=== PATIENT | female | born 1945 | race African-American/Black ===

== ENCOUNTER → 2016-12-05 | Outpatient (CLI) | payer OTHER | END | disposition home or self-care (01) | LOC: RADPV 15:20 | PROVIDERS: ATTEND Legal Medicine | DX: M17.12 Unilateral primary osteoarthritis, left knee (principal) ==

== ENCOUNTER 2022-09-03 05:26 | Inpatient (IN) | payer MEDICARE ==
[~2022-09-03] VITALS: Ht 157.5 cm; Wt 76.5 kg
[~2022-09-03 05:26] MED LIST: ATOR10TA PO; CHOL400T56 PO; FURO20 PO; HYDR10TA31 PO; LOSA-382 PO; METF-1211 PO; VERA120T91 PO
[2022-09-03] MEDS ORDERED: RINGERS SOLUTION,LACTATED 1,000 ML IV ONE ×3 (05:30→09:36)
[2022-09-03] MEDS ORDERED: DORZ10DR6 OU (06:44)
[2022-09-03] MEDS ORDERED: LOSA-382 PO (06:44)
[2022-09-03] MEDS ORDERED: SODIUM CHLORIDE 0.9% 50 ML ONE (06:44)
[2022-09-03] MEDS ORDERED: BRIM15DR8 OU (06:44)
[2022-09-03] MEDS ORDERED: FURO40 PO (06:44)
[2022-09-03] MEDS ORDERED: CELE200 PO (06:44)
[2022-09-03] MEDS ORDERED: HYDR50TA36 PO (06:44)
[2022-09-03] MEDS ORDERED: XALA2.5OS OU (06:44)
[2022-09-03] MEDS ORDERED: VANCOMYCIN HCL 1 GM/VIAL ONE (06:45)
[2022-09-03] MEDS ORDERED: BUPIVACAINE HCL/PF 0.5% 30 ML VIAL ONE (06:45)
[2022-09-03] MEDS ORDERED: ETHYL ALCOHOL 62% ANTISEPTIC NASAL SANITIZER 0.6 ML AMPUL NASAL ONE (06:45)
[2022-09-03] MEDS ORDERED: CHOL25TA4 PO (06:46)
[2022-09-03] MEDS ORDERED: ATOR40TA28 PO (06:46)
[2022-09-03 06:54] LABS: COVID AG,FIA SOURCE NASAL SWAB
[2022-09-03 06:56] LABS: GLUCOMETER DEV NAME(LOC) SDS.; GLUCOSE,POINT OF CARE 99 MG/DL (70-110)
[2022-09-03] MEDS ORDERED: BUPIVACAINE LIPOSOME/PF 1.3%-13.3MG/ML SUSPENSION 20 ML VIAL INJ ONE (07:00)
[2022-09-03] MEDS ORDERED: TRANEXAMIC ACID 1,000 MG in DEXTROSE 5%-WATER 50 ML IV ONE (07:00)
[2022-09-03] MEDS ORDERED: HYDROmorphone HCL 2 MG/ML SYRINGE IVP PRN ×2 (08:30→13:15)
[2022-09-03] MEDS ORDERED: FentaNYL CITRATE PF 100 MCG/2 ML VIAL IVP PRN (08:30)
[2022-09-03] MEDS ORDERED: DiphenhydrAMINE HCL 50 MG/ML VIAL IVP PRN (09:30)
[2022-09-03] MEDS ORDERED: MAG HYDROX/AL HYDROX/SIMETH 30 ML SUSP UDCUP PO PRN (09:30)
[2022-09-03] MEDS ORDERED: ONDANSETRON HCL 4 MG/2 ML VIAL IVP PRN ×2 (09:30→15:45)
[2022-09-03] MEDS ORDERED: BISACODYL 10 MG RECTAL RECTAL SUPPOSITORY PR PRN ×2 (09:30→15:45)
[2022-09-03] MEDS ORDERED: HYDROmorphone HCL 2 MG/ML SYRINGE ONE (10:54)
[2022-09-03] MEDS ORDERED: SODIUM CHLORIDE 0.9% 500 ML IV ONE (11:56)
[2022-09-03] MEDS ORDERED: GLYCOPYRROLATE 0.2 MG/ML VIAL IM ONE (12:00)
[2022-09-03] MEDS ORDERED: MIDAZOLAM HCL 2 MG/2 ML VIAL IVP ONE (12:00)
[2022-09-03] MEDS ORDERED: FentaNYL CITRATE PF 100 MCG/2 ML VIAL IVP ONE (12:00)
[2022-09-03] MEDS ORDERED: 0.9% SODIUM CHLORIDE 10 ML VIAL IVP ONE (12:00)
[2022-09-03] MEDS ORDERED: DiphenhydrAMINE HCL 50 MG/ML VIAL IVP ONE (12:00)
[2022-09-03] MEDS ORDERED: PROPOFOL 1% 20 ML VIAL IVP ONE (12:00)
[2022-09-03] MEDS ORDERED: EPHEDrine SULFATE 50 MG/ML VIAL IM ONE (12:00)
[2022-09-03] MEDS ORDERED: ONDANSETRON HCL 4 MG/2 ML VIAL IVP ONE (12:00)
[2022-09-03 12:47] VITALS: BP 134/65
[2022-09-03] MEDS: CELECOXIB 100 MG CAPSULE PO SCH ×2 (13:15→20:22)
[2022-09-03] MEDS: CeFAZolin 2 GM/DEXTROSE 50 ML IV SCH ×2 (14:39→22:46)
[2022-09-03] MEDS ORDERED: ZOLPIDEM TARTRATE 5 MG TABLET PO PRN (15:45)
[2022-09-03] MEDS ORDERED: ACETAMINOPHEN 325 MG TABLET PO PRN (15:45)
[2022-09-03] MEDS ORDERED: ALBUTEROL SULFATE 2.5 MG/0.5 ML NEB SOLUTION NEB PRN (15:45)
[2022-09-03] MEDS ORDERED: MAGNESIUM HYDROXIDE SUSPENSION 30 ML UDCUP PO PRN (15:45)
[2022-09-03] MEDS ORDERED: DEXTROSE 50%-WATER 25 GM/50 ML SYRINGE IVP PRN (15:45)
[2022-09-03] MEDS ORDERED: IPRATROPIUM BROMIDE 0.5 MG/2.5 ML NEB SOLUTION NEB PRN (15:45)
[2022-09-03] MEDS: DORZOLAMIDE HCL 2% 10 ML OPHTHALMIC SOLUTION OU SCH ×2 (16:33→20:24)
[2022-09-03] MEDS: CYCLOBENZAPRINE HCL 10 MG TABLET PO SCH ×2 (16:33→20:24)
[2022-09-03] MEDS: BRIMONIDINE TARTRATE 0.2% 5 ML OPHTHALMIC SOLUTION OU SCH ×2 (16:33→20:24)
[2022-09-03] MEDS: HEPARIN SODIUM,PORCINE 5,000 UNITS/ML VIAL SQ SCH ×2 (16:34→23:33)
[2022-09-03] MEDS: HYDROmorphone HCL 2 MG/ML SYRINGE IVP PRN ×2 (18:02→22:43)
[2022-09-03 19:29] VITALS: BP 148/69
[2022-09-03 20:10] VITALS: BP 124/56
[2022-09-03] MEDS: FAMOTIDINE 20 MG TABLET PO SCH (20:23)
[2022-09-03] MEDS: ATORVASTATIN CALCIUM 40 MG TABLET PO SCH (20:23)
[2022-09-03] MEDS: CHOLECALCIFEROL (VIT D3) 1,000 UNITS [25 MCG] TABLET PO SCH (20:23)
[2022-09-03] MEDS: HydrALAZINE HCL 50 MG TABLET PO SCH (20:23)
[2022-09-03] MEDS: VERAPAMIL HCL 120 MG ER TABLET PO SCH (20:23)
[2022-09-03] MEDS: DOCUSATE SODIUM 100 MG CAPSULE PO SCH (20:23)
[2022-09-03] MEDS: LATANOPROST 0.005% 2.5 ML OPHTHALMIC SOLUTION OU SCH (20:24)
[2022-09-03] MEDS ORDERED: DOCUSATE SODIUM 100 MG CAPSULE PO SCH (21:00)
[2022-09-03] MEDS: INSULIN LISPRO 100 UNITS/ML SQ PRN (22:44)
[2022-09-04 04:08] VITALS: BP 115/60
[2022-09-04] MEDS: HYDROmorphone HCL 2 MG/ML SYRINGE IVP PRN (05:29)
[2022-09-04] MEDS: OxyCODONE HCL/ACETAMINOPHEN 5-325 MG TABLET PO PRN ×2 (06:30→17:08)
[2022-09-04 07:46] LABS: GLUCOMETER DEV NAME(LOC) 6N.1; GLUCOSE,POINT OF CARE 102 MG/DL (70-110)
[2022-09-04 07:47] LABS: GLUCOMETER DEV NAME(LOC) 6N.1; GLUCOSE,POINT OF CARE 94 MG/DL (70-110)
[2022-09-04 07:47] LABS: GLUCOMETER DEV NAME(LOC) 6N.1; GLUCOSE,POINT OF CARE 146 MG/DL (70-110)
[2022-09-04 07:48] LABS: BASOPHILS % (AUTO) 0.2 % (0.0-2.0); EOSINOPHILS % (AUTO) 0.1 % (1.0-6.0); HEMATOCRIT 35.2 % (36-46); HEMOGLOBIN 11.3 g/dL (12.0-16.0); LYMPHOCYTES # (AUTO) 0.8 K/uL (1.0-4.8); LYMPHOCYTES % (AUTO) 10.4 % (22.0-44.0); MEAN CORPUSCULAR HEMOGLOBIN 26.5 pg (26.0-34.0); MEAN CORPUSCULAR HGB CONC 32.1 G/dL (31.0-37.0); MEAN CORPUSCULAR VOLUME 83 fL (80-100); MONOCYTES # (AUTO) 0.7 K/uL (0.1-1.0); MONOCYTES % (AUTO) 9.4 % (2.0-9.0); NEUTROPHILS # (AUTO) 6.1 K/uL (1.8-7.7); NEUTROPHILS % (AUTO) 79.9 % (40.0-70.0); PLATELET COUNT (AUTO) 242 K/uL (150-450); RED BLOOD CELL COUNT(AUTO) 4.26 MIL/uL (4.00-5.20); RED CELL DISTRIBUTION WIDTH 14.9 % (11.5-14.5)
[2022-09-04 07:59] VITALS: BP 125/52
[2022-09-04 08:02] LABS: ANION GAP 10 mmol/L (8-16); CALCIUM, TOTAL 8.7 mg/dL (8.8-10.5); CARBON DIOXIDE 27 mmol/L (22-29); CHLORIDE 103 mmol/L (98-107); CREATININE 0.82 mg/dL (0.60-1.30); GLOMERULAR FILTR. RATE CALC > 60 mL/min (>60); GLUCOSE,RANDOM 97 mg/dL (70-110); POTASSIUM 3.6 mmol/L (3.5-5.1); SODIUM SERUM 140 mmol/L (136-145); UREA NITROGEN, BLOOD 20 mg/dL (7-18)
[2022-09-04] MEDS: PANTOPRAZOLE SODIUM 40 MG/VIAL IVP SCH (08:23)
[2022-09-04] MEDS: ASPIRIN 81 MG CHEWABLE TABLET PO SCH ×2 (08:24→20:52)
[2022-09-04] MEDS: HEPARIN SODIUM,PORCINE 5,000 UNITS/ML VIAL SQ SCH ×3 (08:24→23:25)
[2022-09-04] MEDS: LOSARTAN POTASSIUM 50 MG TABLET PO SCH (08:25)
[2022-09-04] MEDS: FUROSEMIDE 40 MG TABLET PO SCH (08:25)
[2022-09-04] MEDS: DOCUSATE SODIUM 100 MG CAPSULE PO SCH ×2 (08:25→20:52)
[2022-09-04] MEDS: HydrALAZINE HCL 50 MG TABLET PO SCH ×2 (08:26→21:00)
[2022-09-04] MEDS: CHOLECALCIFEROL (VIT D3) 1,000 UNITS [25 MCG] TABLET PO SCH ×2 (08:26→20:52)
[2022-09-04] MEDS: CYCLOBENZAPRINE HCL 10 MG TABLET PO SCH ×3 (08:27→20:52)
[2022-09-04] MEDS: VERAPAMIL HCL 120 MG ER TABLET PO SCH ×2 (08:27→21:00)
[2022-09-04] MEDS: FAMOTIDINE 20 MG TABLET PO SCH ×2 (08:27→20:52)
[2022-09-04] MEDS: BRIMONIDINE TARTRATE 0.2% 5 ML OPHTHALMIC SOLUTION OU SCH ×3 (08:28→20:51)
[2022-09-04] MEDS: DORZOLAMIDE HCL 2% 10 ML OPHTHALMIC SOLUTION OU SCH ×3 (08:28→20:52)
[2022-09-04] MEDS: OXYGEN THERAPY IH SCH ×2 (08:39→20:54)
[2022-09-04] MEDS: CELECOXIB 100 MG CAPSULE PO SCH ×2 (08:45→20:54)
[2022-09-04 16:00] VITALS: BP 115/47
[2022-09-04 19:00] LABS: GLUCOMETER DEV NAME(LOC) 6N.1; GLUCOSE,POINT OF CARE 122 MG/DL (70-110)
[2022-09-04 19:01] LABS: GLUCOMETER DEV NAME(LOC) 6N.1; GLUCOSE,POINT OF CARE 114 MG/DL (70-110)
[2022-09-04 19:30] VITALS: BP 105/38
[2022-09-04] MEDS: ATORVASTATIN CALCIUM 40 MG TABLET PO SCH (20:52)
[2022-09-04] MEDS: LATANOPROST 0.005% 2.5 ML OPHTHALMIC SOLUTION OU SCH (20:52)
[2022-09-04] MEDS: INSULIN LISPRO 100 UNITS/ML SQ PRN (20:54)
[2022-09-05 04:50] VITALS: BP 106/45
[2022-09-05 05:31] LABS: GLUCOMETER DEV NAME(LOC) 6S.1B; GLUCOSE,POINT OF CARE 216 MG/DL (70-110)
[2022-09-05 07:50] VITALS: BP 116/51
[2022-09-05] MEDS: OXYGEN THERAPY IH SCH ×2 (08:00→20:00)
[2022-09-05] MEDS: DOCUSATE SODIUM 100 MG CAPSULE PO SCH ×2 (08:31→20:12)
[2022-09-05] MEDS: CHOLECALCIFEROL (VIT D3) 1,000 UNITS [25 MCG] TABLET PO SCH ×2 (08:31→20:12)
[2022-09-05] MEDS: ASPIRIN 81 MG CHEWABLE TABLET PO SCH ×2 (08:31→20:12)
[2022-09-05] MEDS: FAMOTIDINE 20 MG TABLET PO SCH ×2 (08:31→20:12)
[2022-09-05] MEDS: FUROSEMIDE 40 MG TABLET PO SCH (08:31)
[2022-09-05] MEDS: CYCLOBENZAPRINE HCL 10 MG TABLET PO SCH ×3 (08:31→20:12)
[2022-09-05] MEDS: LOSARTAN POTASSIUM 50 MG TABLET PO SCH (08:31)
[2022-09-05] MEDS: PANTOPRAZOLE SODIUM 40 MG/VIAL IVP SCH (08:31)
[2022-09-05] MEDS: HEPARIN SODIUM,PORCINE 5,000 UNITS/ML VIAL SQ SCH ×3 (08:32→23:59)
[2022-09-05] MEDS: CELECOXIB 100 MG CAPSULE PO SCH ×2 (08:34→17:32)
[2022-09-05] MEDS: HydrALAZINE HCL 50 MG TABLET PO SCH ×2 (08:34→20:14)
[2022-09-05] MEDS: VERAPAMIL HCL 120 MG ER TABLET PO SCH ×2 (08:34→20:14)
[2022-09-05] MEDS: BRIMONIDINE TARTRATE 0.2% 5 ML OPHTHALMIC SOLUTION OU SCH ×3 (08:35→20:14)
[2022-09-05] MEDS: DORZOLAMIDE HCL 2% 10 ML OPHTHALMIC SOLUTION OU SCH ×3 (08:36→20:13)
[2022-09-05 11:06] LABS: GLUCOMETER DEV NAME(LOC) 6N.1; GLUCOSE,POINT OF CARE 120 MG/DL (70-110)
[2022-09-05 11:50] LABS: BASOPHILS % (AUTO) 0.5 % (0.0-2.0); EOSINOPHILS % (AUTO) 0.5 % (1.0-6.0); HEMATOCRIT 32.3 % (36-46); HEMOGLOBIN 10.3 g/dL (12.0-16.0); LYMPHOCYTES # (AUTO) 1.1 K/uL (1.0-4.8); MEAN CORPUSCULAR HEMOGLOBIN 26.2 pg (26.0-34.0); MEAN CORPUSCULAR HGB CONC 31.9 G/dL (31.0-37.0); MEAN CORPUSCULAR VOLUME 82 fL (80-100); MONOCYTES # (AUTO) 0.7 K/uL (0.1-1.0); MONOCYTES % (AUTO) 8.2 % (2.0-9.0); NEUTROPHILS # (AUTO) 6.4 K/uL (1.8-7.7); NEUTROPHILS % (AUTO) 77.8 % (40.0-70.0); PLATELET COUNT (AUTO) 215 K/uL (150-450); RED BLOOD CELL COUNT(AUTO) 3.93 MIL/uL (4.00-5.20); RED CELL DISTRIBUTION WIDTH 14.8 % (11.5-14.5)
[2022-09-05 11:51] LABS: GLUCOMETER DEV NAME(LOC) 6N.1; GLUCOSE,POINT OF CARE 137 MG/DL (70-110)
[2022-09-05] MEDS: INSULIN LISPRO 100 UNITS/ML SQ PRN ×4 (11:51→20:36)
[2022-09-05 15:22] VITALS: BP 92/41
[2022-09-05 17:56] VITALS: BP 98/43
[2022-09-05] MEDS: ATORVASTATIN CALCIUM 40 MG TABLET PO SCH (20:12)
[2022-09-05] MEDS: LATANOPROST 0.005% 2.5 ML OPHTHALMIC SOLUTION OU SCH (20:13)
[2022-09-05 20:15] VITALS: BP 98/39
[2022-09-05 21:56] LABS: GLUCOMETER DEV NAME(LOC) 6N.1; GLUCOSE,POINT OF CARE 106 MG/DL (70-110)
[2022-09-05 23:21] LABS: GLUCOMETER DEV NAME(LOC) 6N.2B; GLUCOSE,POINT OF CARE 162 MG/DL (70-110)
[2022-09-06 04:45] VITALS: BP 145/73
[2022-09-06 06:01] LABS: GLUCOMETER DEV NAME(LOC) 6S.1B; GLUCOSE,POINT OF CARE 107 MG/DL (70-110)
[2022-09-06] MEDS: OXYGEN THERAPY IH SCH ×2 (08:00→20:00)
[2022-09-06 08:28] VITALS: BP 132/61
[2022-09-06] MEDS: BRIMONIDINE TARTRATE 0.2% 5 ML OPHTHALMIC SOLUTION OU SCH ×3 (08:40→21:20)
[2022-09-06] MEDS: DORZOLAMIDE HCL 2% 10 ML OPHTHALMIC SOLUTION OU SCH ×3 (08:40→21:20)
[2022-09-06] MEDS: LOSARTAN POTASSIUM 50 MG TABLET PO SCH (08:41)
[2022-09-06] MEDS: CELECOXIB 100 MG CAPSULE PO SCH ×2 (08:42→18:07)
[2022-09-06] MEDS: HydrALAZINE HCL 50 MG TABLET PO SCH ×2 (08:42→21:00)
[2022-09-06] MEDS: VERAPAMIL HCL 120 MG ER TABLET PO SCH ×2 (08:42→21:19)
[2022-09-06] MEDS: ASPIRIN 81 MG CHEWABLE TABLET PO SCH ×2 (08:42→21:19)
[2022-09-06] MEDS: CYCLOBENZAPRINE HCL 10 MG TABLET PO SCH ×3 (08:42→21:19)
[2022-09-06] MEDS: HEPARIN SODIUM,PORCINE 5,000 UNITS/ML VIAL SQ SCH ×3 (08:43→22:33)
[2022-09-06] MEDS: DOCUSATE SODIUM 100 MG CAPSULE PO SCH ×2 (08:43→21:19)
[2022-09-06] MEDS: FUROSEMIDE 40 MG TABLET PO SCH (08:43)
[2022-09-06] MEDS: CHOLECALCIFEROL (VIT D3) 1,000 UNITS [25 MCG] TABLET PO SCH ×2 (08:43→21:19)
[2022-09-06] MEDS: FAMOTIDINE 20 MG TABLET PO SCH ×2 (08:43→21:19)
[2022-09-06] MEDS: PANTOPRAZOLE SODIUM 40 MG/VIAL IVP SCH (08:44)
[2022-09-06] MEDS: HYDROmorphone HCL 2 MG/ML SYRINGE IVP PRN (10:24)
[2022-09-06 12:41] LABS: GLUCOMETER DEV NAME(LOC) 6S.1B; GLUCOSE,POINT OF CARE 101 MG/DL (70-110)
[2022-09-06 13:50] LABS: BASOPHILS % (AUTO) 0.2 % (0.0-2.0); EOSINOPHILS % (AUTO) 0.9 % (1.0-6.0); HEMATOCRIT 30.2 % (36-46); HEMOGLOBIN 9.7 g/dL (12.0-16.0); LYMPHOCYTES # (AUTO) 1.2 K/uL (1.0-4.8); LYMPHOCYTES % (AUTO) 17.4 % (22.0-44.0); MEAN CORPUSCULAR HEMOGLOBIN 26.4 pg (26.0-34.0); MEAN CORPUSCULAR HGB CONC 32.1 G/dL (31.0-37.0); MEAN CORPUSCULAR VOLUME 82 fL (80-100); MONOCYTES # (AUTO) 0.6 K/uL (0.1-1.0); MONOCYTES % (AUTO) 8.2 % (2.0-9.0); NEUTROPHILS # (AUTO) 5.1 K/uL (1.8-7.7); NEUTROPHILS % (AUTO) 73.3 % (40.0-70.0); PLATELET COUNT (AUTO) 235 K/uL (150-450); RED BLOOD CELL COUNT(AUTO) 3.67 MIL/uL (4.00-5.20)
[2022-09-06 16:04] VITALS: BP 101/41
[2022-09-06] MEDS ORDERED: OxyCODONE HCL/ACETAMINOPHEN 5-325 MG TABLET PO PRN (16:30)
[2022-09-06 18:11] LABS: GLUCOMETER DEV NAME(LOC) 6N.2B; GLUCOSE,POINT OF CARE 98 MG/DL (70-110)
[2022-09-06 20:57] VITALS: BP 112/52
[2022-09-06] MEDS: ATORVASTATIN CALCIUM 40 MG TABLET PO SCH (21:19)
[2022-09-06] MEDS: LATANOPROST 0.005% 2.5 ML OPHTHALMIC SOLUTION OU SCH (21:19)
[2022-09-06 22:56] LABS: GLUCOMETER DEV NAME(LOC) 6N.1; GLUCOSE,POINT OF CARE 106 MG/DL (70-110)
[2022-09-07 05:40] VITALS: BP 109/56
[2022-09-07 05:56] LABS: GLUCOMETER DEV NAME(LOC) 6N.1; GLUCOSE,POINT OF CARE 85 MG/DL (70-110)
[2022-09-07] MEDS: OXYGEN THERAPY IH SCH (08:00)
[2022-09-07 08:31] VITALS: BP 112/58
[2022-09-07] MEDS: FUROSEMIDE 40 MG TABLET PO SCH (09:00)
[2022-09-07] MEDS: HydrALAZINE HCL 50 MG TABLET PO SCH (09:00)
[2022-09-07] MEDS: VERAPAMIL HCL 120 MG ER TABLET PO SCH (09:00)
[2022-09-07] MEDS: LOSARTAN POTASSIUM 50 MG TABLET PO SCH (09:00)
[2022-09-07] MEDS: PANTOPRAZOLE SODIUM 40 MG/VIAL IVP SCH (09:47)
[2022-09-07] MEDS: HEPARIN SODIUM,PORCINE 5,000 UNITS/ML VIAL SQ SCH ×2 (09:47→15:50)
[2022-09-07] MEDS: ASPIRIN 81 MG CHEWABLE TABLET PO SCH (09:55)
[2022-09-07] MEDS: DOCUSATE SODIUM 100 MG CAPSULE PO SCH (09:57)
[2022-09-07] MEDS: CHOLECALCIFEROL (VIT D3) 1,000 UNITS [25 MCG] TABLET PO SCH (09:57)
[2022-09-07] MEDS: FAMOTIDINE 20 MG TABLET PO SCH (09:58)
[2022-09-07] MEDS: CELECOXIB 100 MG CAPSULE PO SCH (09:59)
[2022-09-07] MEDS: CYCLOBENZAPRINE HCL 10 MG TABLET PO SCH ×2 (10:00→15:50)
[2022-09-07] MEDS: DORZOLAMIDE HCL 2% 10 ML OPHTHALMIC SOLUTION OU SCH ×2 (10:03→15:56)
[2022-09-07] MEDS: BRIMONIDINE TARTRATE 0.2% 5 ML OPHTHALMIC SOLUTION OU SCH ×2 (10:03→15:56)
[2022-09-07 12:51] LABS: GLUCOMETER DEV NAME(LOC) 6S.1B; GLUCOSE,POINT OF CARE 105 MG/DL (70-110)
[2022-09-07 14:55] LABS: COVID AG,FIA SOURCE NASOPHARYNGEAL
== END 2022-09-07 16:40 | DRG 470 ==
LOC: 6N 05:26
PROVIDERS: ADMIT Orthopaedic Surgery; ATTEND Orthopaedic Surgery
PROC: 0SR90JZ Replacement of Right Hip Joint with Synthetic Substitute, Open Approach (ICD-10-PCS; principal; 2022-09-03 07:30)
DX: M16.11 Unilateral primary osteoarthritis, right hip (principal); Z20.822 Contact with and (suspected) exposure to COVID-19; E11.9 Type 2 diabetes mellitus without complications; E78.00 Pure hypercholesterolemia, unspecified; I10 Essential (primary) hypertension; Z79.899 Other long term (current) drug therapy; H40.9 Unspecified glaucoma
CPT/HCPCS: 73501; 73502; 80048; 82962; 85025; 87081; 88300; 93005; 94760; 97110; 97116; 97162; 97166; 97530; 97535; C9113; C9290; G0238; J0690; J1170; J1200; J1644; J2250; J2405; J2704; J3010; J3370; J3490; J7040; J7060; J7120